=== PATIENT | male | born 1960 | race Caucasian/White ===

== ENCOUNTER 2018-03-13 08:03 | Day surgery (SDC) | payer BC ==
[~2018-03-13] VITALS: Ht 170.2 cm; Wt 77.1 kg
[2018-03-13] VITALS (9 sets, daily range): BP systolic 102–129; BP diastolic 66–87
--- NOTE | 2018-03-13 07:05 | Pre-Procedure Note/Attestation ---
Pre-Procedure Note/Attestation Complete Prior to Procedure Planned Procedure: right Procedure Narrative: rt shoulder scope, full kary james Indications for Procedure Pre-Operative Diagnosis: rt shoulder impingement Attestation I attest that I discussed the nature of the procedure; its benefits; risks and complications; and alternatives (and the risks and benefits of such alternatives ), prior to the procedure, with the patient (or the patient's legal u.s. representative). I attest that, if there was a reasonable possibility of needing a blood transfusion, the patient (or the patient's legal u.s. representative) was given the [facility] standardized written summary, pursuant to the [place] Blood Safety Act ([place] Health and Safety Code # 1645, as amended). I attest that I re-evaluated the patient just prior to the surgery and that there has been no change in the patient's H&P, except as documented below: none Coy Ortiz MD Mar 13, 2018 07:05
[~2018-03-13 08:03] MED LIST: TRUVADA 200 MG1 EAC1 ORAL; ceFAZolin 1gm IVPB IVPB ONE; celeBREX 200mg Cap **SURGERY PATIENTS ONLY ORAL ONE; oxyCONTIN 20mg tab ORAL ONE
[2018-03-13] MEDS ORDERED: celeBREX 200mg Cap **SURGERY PATIENTS ONLY ORAL ONE (08:47)
[2018-03-13] MEDS ORDERED: oxyCONTIN 20mg tab ORAL ONE (08:47)
[2018-03-13] MEDS ORDERED: LR 1000ml 1,000 ML IVLG SCH (09:17)
[2018-03-13] MEDS ORDERED: Sodium Chloride 10ml vial INJ ONE (09:20)
[2018-03-13] MEDS ORDERED: Lidocaine 1% MPF 10mg/ml 5ml ONE (09:20)
[2018-03-13] MEDS ORDERED: Dexamethasone 4mg/ml vial ONE (09:20)
--- NOTE | 2018-03-13 09:20 | Anethesia Preoperative Eval ---
Anesthesia Pre-op PMH/ROS General Date of Evaluation: Mar 13, 2018 Time of Evaluation: 11:11 Anesthesiologist: Neeraj ASA Score: ASA 3 Mallampati Score Class I : Soft palate, uvula, fauces, pillars visible Class II: Soft palate, uvula, fauces visible Class III: Soft palate, base of uvula visible Class IV: Only hard plate visible Mallampati Classification: Class II Surgeon: Angel Diagnosis: R Shoulder Pain Surgical Procedure: R Shoulder Arthroscopy, Jaun, Subacromial Decompression Anesthesia History: none Family History: no anesthesia problems Allergies: Coded Allergies: IODINE (Verified Allergy, Severe, 03/12/18) HIGH FEVER Medications: see eMAR Patient NPO?: Yes Past Medical History Hematology/Immune: Reports: other - Anal CA- Chemo, Rad Anesthesia Pre-op Phys. Exam Physician Exam Last Vital Signs Date Time Temp Pulse Resp B/P (MAP) Pulse Ox O2 Delivery O2 Flow Rate FiO2 03/13/18 08:41 97.3 61 18 129/87 95 Room Air Constitutional: NAD Neurologic: CN 2-12 intact Cardiovascular: RRR Respiratory: CTA Gastrointestinal: S/NT/ND Airway Exam Mallampati Score: Class II MO: full ROM: limited Anesthesia Pre-op A/P Risk Assessment & Plan Assessment: ASA 3 Plan: GA, R Supraclavicular Block, SED Status Change Before Surgery: No Pre-Antibiotics Dru Gram Ancef IV Given Within 1 Hr of Incision: Yes Time Given: 11:34 Jamarcus Pickard MD Mar 13, 2018 09:20
[2018-03-13] MEDS ORDERED: Propofol 200mg/20ml IV ONE (09:21)
[2018-03-13] MEDS ORDERED: Ropivacaine 5mg/ml Vial 30ml INJ ONE (09:21)
[2018-03-13] MEDS ORDERED: Alfentanil 2ml Inj ONE (09:26)
[2018-03-13] MEDS ORDERED: Ketorolac 30mg Inj IV PRN ×2 (09:30)
[2018-03-13] MEDS ORDERED: Midazolam 2mg/2ml Inj IVP PRN (09:30)
[2018-03-13] MEDS ORDERED: Norco 5mg/325mg tab ORAL PRN ×2 (09:30→17:00)
[2018-03-13] MEDS ORDERED: Meperidine 50mg/ml Inj(FOR RIGORS ONLY) IVP PRN (09:30)
[2018-03-13] MEDS ORDERED: fentaNYL 100 mcg/2 mL IV PRN (09:30)
[2018-03-13] MEDS ORDERED: HYDROcodone/Acetamin 7.5/325 tab ORAL PRN (09:30)
[2018-03-13] MEDS ORDERED: LORazepam Inj 2mg/ml 1ml IV PRN (09:30)
[2018-03-13] MEDS ORDERED: Metoclopramide 10mg/2ml Inj IVP PRN (09:30)
[2018-03-13] MEDS ORDERED: DiphenhydrAMINE 50mg/ml Inj IVP PRN (09:30)
[2018-03-13] MEDS ORDERED: Atropine Sulfate 0.4mg/ml inj IVP PRN (09:30)
[2018-03-13] MEDS ORDERED: oxyCODONE HCL/Acetaminophen 5/325mg ORAL PRN (09:30)
[2018-03-13] MEDS ORDERED: Hydromorphone 0.5mg/0.5ml inj IVP PRN (09:30)
[2018-03-13] MEDS ORDERED: Sterile Water Irrig 1000ml IRRIG ONE (11:11)
[2018-03-13] MEDS ORDERED: LR 1000ml ONE (11:11)
[2018-03-13] MEDS ORDERED: NS Irrig 4000ml IRRIG ONE (11:11)
--- NOTE | 2018-03-13 12:10 | Immediate Post-Op Evaluation ---
Immediate Post-Op Evalulation Immediate Post-Op Evalulation Procedure: R Shoulder Arthroscopy, Jaun, Subacromial Decompression Date of Evaluation: Mar 13, 2018 Time of Evaluation: 13:35 IV Fluids: 600 LR Blood Products: 0 Estimated Blood Loss: 10 Urinary Output: 0 Blood Pressure Systolic: 110 Blood Pressure Diastolic: 77 Pulse Rate: 57 Respiratory Rate: 16 O2 Sat by Pulse Oximetry: 99 Temperature (Fahrenheit): 97.5 Pain Score (1-10): 2 Nausea: No Vomiting: No Complications 0 Patient Status: awake, reacts, patent, none Hydration Status: adequate Dru Gram Ancef IV Given Within 1 Hr of Incision: Yes Time Given: 11:34 Jamarcus Pickard MD Mar 13, 2018 12:10
--- NOTE | 2018-03-13 12:11 | 48 Hour Post Anesthesia Eval ---
Post Anesthesia Evaluation Procedure: R Shoulder Arthroscopy, Ellery, Subacromial Decompression Date of Evaluation: Mar 13, 2018 Time of Evaluation: 15:54 Blood Pressure Systolic: 128 0: 76 Pulse Rate: 58 Respiratory Rate: 18 Temperature (Fahrenheit): 97.8 O2 Sat by Pulse Oximetry: 100 Airway: patent Nausea: No Vomiting: No Pain Intensity: 2 Hydration Status: adequate Cardiopulmonary Status: 0 Mental Status/LOC: patient returned to baseline Follow-up Care/Observations: 0 Post-Anesthesia Complications: 0 Follow-up care needed: ready to discharge Jamarcus Pickard MD Mar 13, 2018 12:11
--- NOTE | 2018-03-13 13:14 | Brief Operative Note ---
Immediate Post Operative Note Operative Note Chief Complaint: rt shoulder pain Pre-op Diagnosis: rt shoulder impingement Procedure: rt shoulder scope, sad, full erika Post-op Diagnosis: same as pre-op Findings: consistent w/pre-op dx studies Surgeon: md eufemia Pairer Substandard: joe arguello Anesthesiologist: md clarisa Anesthesia: general Specimen: none Complications: none Condition: stable Fluids: ns Estimated Blood Loss: minimal Drains: none Implant(s) used?: No Farhana Arguello Mar 13, 2018 13:14
[2018-03-13] MEDS ORDERED: HYDROmorphone 1mg/ml Carpuject SUBQ PRN (17:00)
[2018-03-13] MEDS ORDERED: D5 1/2NS 1,000 ML IV SCH (17:00)
[2018-03-13] MEDS ORDERED: Tylenol #3 tab (300mg/30mg) ORAL PRN (17:00)
--- NOTE | 2018-03-14 00:45 | Operative Note - Dictated ---
DATE OF OPERATION: 03/13/2018 PREOPERATIVE DIAGNOSES: 1. Right shoulder impingement syndrome. 2. Right shoulder AC joint arthritis. POSTOPERATIVE DIAGNOSES: 1. Right shoulder impingement. 2. Right shoulder AC joint arthritis. 3. Right shoulder grade 4 chondral damage in the central weightbearing portion of the humerus measuring 2 x 2 cm with unstable chondral flaps. PROCEDURE: 1. Right shoulder arthroscopy and extensive intra-articular shaving. 2. Right shoulder humeral head chondroplasty with resection of loose unstable chondral fragment. 3. Right shoulder subacromial bursoscopy, bursectomy, and subacromial decompression. 4. Right shoulder full-Jaun procedure (resection of distal 1 cm of the clavicle). SURGEON: Coy Ortiz M.D. MANAGER AMBULATORY: Farhana Sprague PA-C. ANESTHESIOLOGIST: Jamarcus Pickard M.D. ANESTHESIA: LMA anesthesia. EBL: Minimal. COMPLICATIONS: None. SURGICAL INDICATION: The patient is a 57-year-old male, who sustained the above injury to his shoulder. The patient was treated non-operative initially, but this did not alleviate the patients symptoms. Therefore, after discussing all non-surgical and surgical options, and discussing all foreseeable risk and benefits of surgery, the patient opted for surgical treatment as described above. PATIENT POSITIONING: Patient was brought to the operating room table and was placed on the operating room table. All pressure points were well padded. General anesthesia was induced and patient was then placed in the lateral decubitus position. All pressure points were well padded again and an axillary roll was placed. Patient shoulder was then prepped and draped in the usual sterile fashion. Time out was performed and the appropriate preoperative antibiotic was given by the anesthesiologist. EXAMINATION OF SHOULDER UNDER ANESTHESIA: The shoulder was examined under anesthesia with all muscles well relaxed. The shoulder was forward flexed, abducted and was placed through full range of external and internal rotation. The anterior, posterior, and inferior stability of the shoulder was checked. The exam revealed no evidence of adhesive capsulitis and no evidence of instability. PORTAL PLACEMENT: The posterior portal was established 2cm inferior and 1cm medial to the edge of the posterior acromion. 1 cm skin incision was made using an eleven blade and using the blunt obturator, the cannula was gently placed through the capsule. The midglenoid portal was established just lateral to the coracoid process under direct visualization. Direction of the cannula was first established using a spinal needle, and subsequently, the cannula was placed through the capsule with a blunt obturator. The anterior superior cannula was established under direct visualization off the anterior lateral edge of the acromion and just anterior to the biceps tendon through the rotator interval. The directional of cannula was first established using a spinal needle, and subsequently, the cannula was placed through the capsule with a blunt obturator. DIAGNOSTIC ARTHROSCOPY: The biceps tendon was probed and pulled through the joint for visualization. It appeared normal. The biceps anchor was palpated with a probe and was visualized. There was some degenerative superior labral tearing, but there was no detachment. The posterior labrum and axillary recess was visualized. This was normal and there was no evidence of loose cartilage or fragments in this area. The glenoid articular surface was visualized and it appeared normal. The articular surface of the rotator cuff was visualized and probed next. There was a small 10% articular sided rotator cuff tear, but most of the rotator cuff was intact. The humeral head articular surface was then visualized. There was no evidence of articular cartilage damage. Next the anterior labrum, middle gleno-humeral ligament, subscapularis tendon, and the anterior inferior gleno-humeral ligament were evaluated. These structures were completely normal. At this point, the scope was moved to the midglenoid portal and the posterior structures including the posterior labrum, posterior capsule and posterior cuff were visualized. These structures were completely normal. There was a chondral damage over the weightbearing zone of the humeral head centrally measuring 2 x 2 cm with unstable chondral flap. This corresponded to possible previous subluxation injury and this was a shear type of damage. This was in the central portion, this was all the way down to the bone. Periphery, there was some cartilage remaining. The middle and anterior inferior glenohumeral ligament was visualized. These structures were completely normal. OPERATIVE DEBRIDEMENTS AND REPAIR: Care was given to all partial thickness tears and frayed structures in the shoulder joint. The frayed rotator cuff and labrum was debrided using a shaver initially through the anterior portal and subsequently through the posterior portal to complete the debridement. This allowed for smooth debridement of all affected structures and all loose fragments were removed. DIAGNOSTIC BURSASCOPY AND SUBACROMIAL DECOMPRESSION: The subacromion bursa was entered from the posterior portal. The anterior portal was established under the CA ligament using a switching stick. Subacromial arthroscopy was initiated. There was extensive bursitis and thickened and inflamed bursa tissue present. The CA ligament appeared to be scuffed and frayed. The shaver was placed through the anterior cannula and debridement of the hypertrophic bursa tissue was accomplished. Once visualization was adequate, a lateral portal was established using a blunt trochar in the mid portion of the acromion bone in the anterior-posterior direction and approximately 2 cm lateral to the lateral edge of the acromion. Using combination of shaver and electorcautery the CA ligament was released from the undersurface of the acromion and a complete bursectomy was accomplished. At this point, a subacromial decompression was performed using a zbigniew initially taking off 5-8 mm of the anterolateral edge of the acromion from the lateral portal and viewing from the posterior portal. Then the lateral border of the undersurface of the acromion was decompressed to the same dept as the anterolateral edge. A posterior trough was then created in the acromion in line with the posterior edge of the clavicle. At this point, the scope was placed in the lateral portal and the subacromial decompression was performed from the posterior portal decompressing the undersurface of the acromion to dept of 5-8 mm. The decompression was performed anterior to the previously marked trough all the way medially to the level of the AC joint. At all times, care was given not to take off too much bone in order to avoid risk of fracture of the acromion. An excellent subacromial decompression was performed in this fashion. At this point, the bursal side of the rotator cuff was examined. All the bursa over the rotator cuff was removed and the rotator cuff was examined with a probe. The arm was placed into external rotation, neutral, and then internal rotation and there was no evidence of tear of the rotator cuff. The scope was then placed in the posterior portal and the subacromial decompression was rechecked to assure there is no area of bone spur that would be still impinging onto the rotator cuff. EVALUATION OF DISTAL CLAVICLE AND DISTAL CLAVICLE RESECTION: Care was given to the distal end of the clavicle. Using electrocautery and adilia, the distal end of the bursa and soft tissue around the distal end of the clavicle was debrided and cleaned. Care was given not to inflict excessive trauma to the ligaments of the AC joint. The distal end of the clavicle appeared to have an inferior osteophyte extending down well bellow the level of the acromion at the level of the AC joint. This appeared to be impinging onto the supraspinatous muscle belly and the musculotendenous junction of the rotator cuff. The entire AC joint appeared to be arthritic as well. A full Jaun procedure was then performed resecting the distal 1 cm of the clavicle using a zbigniew. The resection was initially performed from the posterior portal and view from the lateral portal, and it subsequently completed viewing from the posterior portal and resecting through the anterior portal with a zbigniew to assure adequate and even resection. Care was given not to damage the superior acromioclavicular ligaments or the coracoracromial ligaments. The extend of the resection was measured by measuring the distance between two spinal needles that were placed perpendicularly through the skin at the edge of the acromion and distal clavicle. CONDITION AT DISCHARGE FROM OPERATING ROOM: The skin was re-approximated and sterile dressing and sling were applied. All lap counts and instrument counts were correct. The patient tolerated the procedure well without complications and was taken to the recovery room in stable conditions. Coy Ortiz M.D. DR: RADHA JOB#: [id number] CC:
== END 2018-03-13 15:00 | disposition home or self-care (01) ==
LOC: SUR 08:03
DX: M75.41 Impingement syndrome of right shoulder (principal); M19.011 Primary osteoarthritis, right shoulder; M24.811 Other specific joint derangements of right shoulder, not elsewhere classified; F17.200 Nicotine dependence, unspecified, uncomplicated; M48.061 Spinal stenosis, lumbar region without neurogenic claudication; M48.02 Spinal stenosis, cervical region; Z85.048 Personal history of other malignant neoplasm of rectum, rectosigmoid junction, and anus
CPT/HCPCS: 29823; 29824; 29826; J0690; J1100; J2250; J2405; J2704; J2795; J3490; 94003; 94150